=== PATIENT | female | born 1985 | race Two or more races ===

== ENCOUNTER 2021-01-29 12:56 | Outpatient (CLI) | payer BC ==
[2021-01-29] MEDS ORDERED: GADOTERATE MEGLUMINE 5 MMOL/10 ML VIAL IV ONE (12:57)
== END 2021-01-29 23:59 | disposition home or self-care (01) ==
LOC: MRI 12:56
PROVIDERS: ATTEND Family Medicine
DX: R55 Syncope and collapse (principal)
CPT/HCPCS: 70553; A9575

== ENCOUNTER 2021-02-14 14:00 | Outpatient (CLI) | payer BC ==
[2021-02-14 15:39] LABS: CREATININE 0.8 mg/dL (0.6-1.3)
== END 2021-02-14 23:59 | disposition home or self-care (01) ==
LOC: LAB 14:00
PROVIDERS: ATTEND Family Medicine
DX: R22.0 Localized swelling, mass and lump, head (principal)
CPT/HCPCS: 36415; 82565-TC; 84520-TC

== ENCOUNTER 2021-02-15 10:53 | Outpatient (CLI) | payer BC ==
[2021-02-15] MEDS ORDERED: IOHEXOL-300 100 ML VIAL IV ONE (11:00)
[2021-02-15] MEDS ORDERED: CT SWABBABLE VALVE TRANS SET 1 EA INFUS.SET MC ONE (11:01)
[2021-02-15] MEDS ORDERED: IV NS 0.9% 250 ML IV ONE (11:01)
== END 2021-02-15 23:59 | disposition home or self-care (01) ==
LOC: CT 10:53
PROVIDERS: ATTEND Family Medicine
DX: R22.0 Localized swelling, mass and lump, head (principal)
CPT/HCPCS: 70470; J7050; Q9967

== ENCOUNTER 2021-09-04 11:46 | Outpatient (CLI) | payer BC ==
[2021-09-04] MEDS ORDERED: GADOTERATE MEGLUMINE 10 MMOL/20 ML VIAL IV ONE (11:47)
[2021-09-04 14:27] LABS: CREATININE 0.8 mg/dL (0.6-1.3)
== END 2021-09-04 23:59 | disposition home or self-care (01) ==
LOC: LAB 11:46 → MRI 23:59
PROVIDERS: ATTEND Family Medicine
DX: D49.6 Neoplasm of unspecified behavior of brain (principal)
CPT/HCPCS: 36415; 70553; 82565; 84520; A9575

== ENCOUNTER 2022-10-30 10:23 | Outpatient (CLI) | payer BC ==
[2022-10-30 11:11] LABS: BASOPHILS % (AUTO) 0.5 % (0.0-2.0); EOSINOPHILS % (AUTO) 1.6 % (0.0-6.0); HEMATOCRIT 42 % (33-45); HEMOGLOBIN 14.2 g/dL (11.5-14.8); LYMPHOCYTES # (AUTO) 2.8 K/uL (0.8-4.8); LYMPHOCYTES % (AUTO) 30.5 % (20.0-44.0); MEAN CORPUSCULAR HGB CONC 34 g/dl (31.0-36.0); MEAN CORPUSCULAR VOLUME 85 fL (82-100); MONOCYTES # (AUTO) 0.6 K/uL (0.1-1.30); MONOCYTES % (AUTO) 6.8 % (2.0-12.0); NEUTROPHILS # (AUTO) 5.5 K/uL (1.8-8.9); NEUTROPHILS % (AUTO) 60.6 % (43.0-81.0); PLATELET COUNT (AUTO) 314 K/uL (150-450); RED BLOOD CELL COUNT(AUTO) 4.96 MIL/uL (4.0-5.2); WHITE BLOOD COUNT (AUTO) 9.1 K/uL (4.3-11.0)
[2022-10-30 11:18] LABS: BILIRUBIN,URINE NEGATIVE (NEGATIVE); COLOR,URINE YELLOW (YELLOW); LEUKOCYTE ESTERASE ,URINE TRACE (NEGATIVE); NITRITE, URINE NEGATIVE (NEGATIVE); PH,URINE 6.5 (5.0-8.0); PROTEIN,URINE NEGATIVE (NEGATIVE); UGLUCOSE NEGATIVE (NEGATIVE); UROBILINOGEN,URINE 0.2 EU/dL (0.2)
[2022-10-30 11:41] LABS: THYROID STIMULATING HORMONE 1.686 uIU/mL (0.358-3.74)
[2022-10-30 11:52] LABS: BACTERIA,URINE Moderate /HPF (None Seen); SQUAMOUS EPITHELIAL CELL,UR Few /HPF (None Seen)
[2022-10-30 12:32] LABS: ALBUMIN 3.6 g/dL (3.4-5.0); BILIRUBIN,TOTAL 0.2 mg/dL (0.2-1.0); CALCIUM, SERUM 9.1 mg/dL (8.5-10.1); CREATININE 0.8 mg/dL (0.6-1.3); POTASSIUM 3.8 mmol/L (3.5-5.1)
== END 2022-10-30 23:59 | disposition home or self-care (01) ==
LOC: LAB 10:23
PROVIDERS: ATTEND Family Medicine
DX: Z00.01 Encounter for general adult medical examination with abnormal findings (principal)
CPT/HCPCS: 36415; 80053-TC; 80061-TC; 81001; 82306; 84439-TC; 84443-TC; 84481; 85025-TC; 87086-TC

== ENCOUNTER 2022-11-04 11:43 | Outpatient (CLI) | payer BC ==
[2022-11-04] MEDS ORDERED: GADOTERATE MEGLUMINE 10 MMOL/20 ML VIAL IV ONE (14:05)
== END 2022-11-04 23:59 | disposition home or self-care (01) ==
LOC: MRI 11:43
PROVIDERS: ATTEND Neurological Surgery
DX: R51.9 Headache, unspecified (principal); N39.9 Disorder of urinary system, unspecified
CPT/HCPCS: 70553; 87086; A9575